=== PATIENT | female | born 1995 | race Caucasian/White ===

== ENCOUNTER 2018-08-16 00:16 | Emergency (ER) | payer OTHER, MEDICAID ==
[2018-08-16] MEDS: ACETAMINOPHEN 500 MG TAB PO (01:54)
== END 2018-08-16 02:04 | disposition home or self-care (01) ==
LOC: FTE 00:16
DX: O99.619 Diseases of the digestive system complicating pregnancy, unspecified trimester (principal); K08.89 Other specified disorders of teeth and supporting structures
CPT/HCPCS: 99283; Z7502

== ENCOUNTER 2018-11-07 11:34 | Emergency (ER) | payer OTHER ==
[2018-11-07] MEDS: METOCLOPRAMIDE 10 MG INJ IV (12:22)
[2018-11-07] MEDS: SOD CHLORIDE 0.9% 1,000 ML IV (12:22)
[2018-11-07 12:39] LABS: ADD MAN DIFF? NO
[2018-11-07 12:43] LABS: BASOPHIL # 0.1 10^3/ul (0.0-0.1); BASOPHILS % 0.5 % (0.0-2.0); EOSINOPHILS # 0.1 10^3/ul (0.0-0.5); HEMATOCRIT 38.3 % (37.0-47.0); HEMOGLOBIN 12.7 g/dl (12.0-16.0); LYMPHOCYTES # 1.6 10^3/ul (0.8-2.9); LYMPHOCYTES % 17.5 % (15.0-51.0); MEAN CORPUSCULAR HEMOGLOBIN 29.2 pg (29.0-33.0); MEAN CORPUSCULAR HGB CONC 33.2 g/dl (32.0-37.0); MEAN PLATELET VOLUME 10.8 fl (7.4-10.4); MONOCYTE # 0.4 10^3/ul (0.3-0.9); MONOCYTES % 4.1 % (0.0-11.0); NEUTROPHIL # 7.2 10^3/ul (1.6-7.5); NEUTROPHILS % 76.6 % (39.0-77.0); PLATELET COUNT 385 10^3/UL (140-415); RED BLOOD COUNT 4.35 10^6/ul (4.20-5.40); RED CELL DISTRIBUTION WIDTH 14.1 % (11.5-14.5)
[2018-11-07 12:43] LABS: WHITE BLOOD COUNT 9.4 10^3/ul (4.8-10.8)
[2018-11-07 12:58] LABS: ADD UMIC YES; UR ASCORBIC ACID NEGATIVE (NEGATIVE); UR BACTERIA FEW /HPF (NONE SEEN); UR BILIRUBIN (Dip) NEGATIVE (NEGATIVE); UR BLOOD (Dip) NEGATIVE (NEGATIVE); UR CLARITY CLOUDY (CLEAR); UR COLOR AMBER (YELLOW); UR GLUCOSE (Dip) NEGATIVE (NEGATIVE); UR KETONES (Dip) 1+ mg/dL (NEGATIVE); UR LEUKOCYTE ESTERASE (Dip) 3+ Leu/ul (NEGATIVE); UR MUCUS MANY /HPF (NONE SEEN); UR NITRITE (Dip) NEGATIVE (NEGATIVE); UR RBC 23 /HPF (0-5); UR SPECIFIC GRAVITY (Dip) 1.026 (1.003-1.030); UR SQUAMOUS EPITHELIAL CELL MANY /HPF (FEW); UR TOTAL PROTEIN (Dip) 1+ mg/dl (NEGATIVE); UR UROBILINOGEN (Dip) 1+ mg/dL (NEGATIVE); UR WBC 17 /HPF (0-5)
[2018-11-07 13:00] LABS: ANION GAP 11 (5-13); BLOOD UREA NITROGEN 2 mg/dl (7-20); CALCIUM 9.6 mg/dl (8.4-10.2); CARBON DIOXIDE 24 mmol/L (21-31); CHLORIDE 105 mmol/L (97-110); Estimated GFR > 60 mL/min (>60); GLUCOSE 80 mg/dl (70-220); POTASSIUM 3.7 mmol/L (3.5-5.1); SODIUM 140 mmol/L (135-144)
== END 2018-11-07 14:27 | disposition home or self-care (01) ==
LOC: FTE 11:34
DX: O23.41 Unspecified infection of urinary tract in pregnancy, first trimester (principal); Z3A.01 Less than 8 weeks gestation of pregnancy
CPT/HCPCS: 36415; 80048; 81001; 84702; 85025; 86900; 86901; 87086; 96374; 99284-25

== ENCOUNTER 2019-01-30 14:23 | Inpatient (IN) | payer OTHER ==
[2019-01-30 15:50] LABS: ADD UMIC YES; UR ASCORBIC ACID 40 mg/dL (NEGATIVE); UR BILIRUBIN (Dip) NEGATIVE (NEGATIVE); UR BLOOD (Dip) NEGATIVE (NEGATIVE); UR CLARITY CLEAR (CLEAR); UR COLOR AMBER (YELLOW); UR GLUCOSE (Dip) NEGATIVE (NEGATIVE); UR KETONES (Dip) 2+ mg/dL (NEGATIVE); UR LEUKOCYTE ESTERASE (Dip) 1+ Leu/ul (NEGATIVE); UR MUCUS FEW /HPF (NONE SEEN); UR NITRITE (Dip) NEGATIVE (NEGATIVE); UR RBC 1 /HPF (0-5); UR SPECIFIC GRAVITY (Dip) 1.021 (1.003-1.030); UR SQUAMOUS EPITHELIAL CELL FEW /HPF (FEW); UR TOTAL PROTEIN (Dip) NEGATIVE (NEGATIVE); UR UROBILINOGEN (Dip) 2+ mg/dL (NEGATIVE); UR WBC 2 /HPF (0-5)
[2019-01-30] MEDS ORDERED: ACETAMINOPHEN 325 MG TAB PO (20:30)
[2019-01-30] MEDS ORDERED: BETAMET NA PHOS/AC(6 MG/ML) 2 ML INJ SYG IM (20:30)
[2019-01-30] MEDS: LACTATED RINGER'S 1,000 ML IV (20:49)
[2019-01-30] MEDS: MAGNESIUM SULFATE 4 GM/100 ML 100 ML IV (20:52)
[2019-01-30] MEDS: MAGNESIUM SULFATE 20 GM/500 ML 500 ML IV (21:23)
[2019-01-30] MEDS: AMPICILLIN 2 GM/NS (PMX) 100 ML IV (21:24)
[2019-01-30] MEDS: BETAMET NA PHOS/AC(6 MG/ML) 2 ML INJ SYG IM (21:45)
[2019-01-30] MEDS ORDERED: DIPHENHYDRAMINE 50 MG INJ IV (23:00)
[2019-01-31 01:19] LABS: AMPHETAMINE/METHAMPHETAMINE Negative (NEGATIVE); BARBITURATES Negative (NEGATIVE); BENZODIAZEPINES Negative (NEGATIVE); CANNABINOIDS Negative (NEGATIVE); COCAINE Negative (NEGATIVE); OPIATES Negative (NEGATIVE)
[2019-01-31] MEDS: AMPICILLIN 1 GM/NS (PMX) 50 ML IV ×6 (01:25→21:43)
[2019-01-31] MEDS: MAGNESIUM SULFATE 20 GM/500 ML 500 ML IV ×2 (06:30→15:43)
[2019-01-31 07:58] LABS: MAGNESIUM 4.6 mg/dl (1.7-2.5)
[2019-01-31] MEDS: SALINE 0.65% 45 ML NAS SPRAY NASAL (08:21)
[2019-01-31] MEDS ORDERED: NON-FORMULARY/PATIENT OWN MED (Prenatal Vit No.124/Iron/FA (Prenatal Vitamin Tablet) 1 EAC PO (09:00)
[2019-01-31] MEDS: PRENATAL VITAMIN PO (09:15)
[2019-01-31] MEDS: LACTATED RINGER'S 1,000 ML IV (09:16)
[2019-01-31 13:52] LABS: MAGNESIUM 4.6 mg/dl (1.7-2.5)
[2019-01-31 19:34] LABS: MAGNESIUM 4.5 mg/dl (1.7-2.5)
[2019-01-31] MEDS: BETAMET NA PHOS/AC(6 MG/ML) 2 ML INJ SYG IM (22:41)
[2019-02-01] MEDS: MAGNESIUM SULFATE 20 GM/500 ML 500 ML IV ×2 (01:12→11:18)
[2019-02-01] MEDS: AMPICILLIN 1 GM/NS (PMX) 50 ML IV ×6 (01:13→21:32)
[2019-02-01 01:16] LABS: MAGNESIUM 4.5 mg/dl (1.7-2.5)
[2019-02-01] MEDS: DIPHENHYDRAMINE 2.5 MG/ML 5ML CUP PO ×2 (01:25→23:17)
[2019-02-01] MEDS: LACTATED RINGER'S 1,000 ML IV ×2 (02:35→16:57)
[2019-02-01 07:20] LABS: MAGNESIUM 4.7 mg/dl (1.7-2.5)
[2019-02-01] MEDS: PRENATAL VITAMIN PO (08:52)
[2019-02-01 12:15] LABS: MAGNESIUM 4.6 mg/dl (1.7-2.5)
[2019-02-01 18:35] LABS: MAGNESIUM 4.5 mg/dl (1.7-2.5)
[2019-02-02] MEDS: AMPICILLIN 1 GM/NS (PMX) 50 ML IV ×3 (01:27→09:23)
[2019-02-02] MEDS: LACTATED RINGER'S 1,000 ML IV (06:11)
[2019-02-02] MEDS: PRENATAL VITAMIN PO (09:23)
[2019-02-02] MEDS: metroNIDAZOLE 500 MG TAB PO (20:59)
[2019-02-02] MEDS: DIPHENHYDRAMINE 2.5 MG/ML 5ML CUP PO (23:24)
[2019-02-03] MEDS: PRENATAL VITAMIN PO (09:08)
[2019-02-03] MEDS: metroNIDAZOLE 500 MG TAB PO ×2 (09:08→21:03)
[2019-02-04] MEDS: MICONAZOLE 2% 45 GM VAG CR VAG (01:00)
[2019-02-04] MEDS: PRENATAL VITAMIN PO (08:38)
[2019-02-04] MEDS: metroNIDAZOLE 500 MG TAB PO (08:38)
== END 2019-02-04 15:48 | disposition home or self-care (01) | DRG 832 ==
LOC: OBT 14:23 → L-D 14:23 → OBT 18:00 → L-D 18:00 → PP1 22:29
DX: O60.03 Preterm labor without delivery, third trimester (principal); O26.873 Cervical shortening, third trimester; Z3A.28 28 weeks gestation of pregnancy
CPT/HCPCS: 76815; 76817; 80307; 81001; 83735; 87081

== ENCOUNTER 2019-02-15 18:55 | Inpatient (IN) | payer OTHER ==
[2019-02-15 20:45] LABS: ADD UMIC YES; UR BILIRUBIN (Dip) NEGATIVE (NEGATIVE); UR BLOOD (Dip) NEGATIVE (NEGATIVE); UR CLARITY SLIGHTLY CLOUDY (CLEAR); UR COLOR YELLOW (YELLOW); UR GLUCOSE (Dip) NEGATIVE (NEGATIVE); UR KETONES (Dip) TRACE mg/dL (NEGATIVE); UR LEUKOCYTE ESTERASE (Dip) 3+ Leu/ul (NEGATIVE); UR NITRITE (Dip) NEGATIVE (NEGATIVE); UR TOTAL PROTEIN (Dip) NEGATIVE (NEGATIVE); UR UROBILINOGEN (Dip) NEGATIVE (NEGATIVE); URINE SPECIFIC GRAVITY (Dip) 1.018 (1.003-1.030)
[2019-02-15 20:46] LABS: UR ASCORBIC ACID 20 mg/dL (NEGATIVE); UR BACTERIA FEW /HPF (NONE SEEN); UR MUCUS FEW /HPF (NONE SEEN); UR RBC 1 /HPF (0-5); UR SQUAMOUS EPITHELIAL CELL FEW /HPF (FEW); UR WBC 3 /HPF (0-5)
[2019-02-16] MEDS: BETAMET NA PHOS/AC(6 MG/ML) 2 ML INJ SYG IM (02:52)
[2019-02-16] MEDS: NIFEdipine 10 MG CAP PO ×4 (02:52→21:10)
[2019-02-16] MEDS: LACTATED RINGER'S 1,000 ML IV ×3 (03:07→18:14)
[2019-02-16 05:14] LABS: ADD MAN DIFF? NO
[2019-02-16 05:24] LABS: BASOPHIL # 0.1 10^3/ul (0.0-0.1); BASOPHILS % 0.6 % (0.0-2.0); EOSINOPHILS # 0.1 10^3/ul (0.0-0.5); EOSINOPHILS % 1.3 % (0.0-7.0); HEMATOCRIT 31.9 % (37.0-47.0); HEMOGLOBIN 10.3 g/dl (12.0-16.0); LYMPHOCYTES # 2.6 10^3/ul (0.8-2.9); LYMPHOCYTES % 29.2 % (15.0-51.0); MEAN CORPUSCULAR HEMOGLOBIN 29.5 pg (29.0-33.0); MEAN CORPUSCULAR HGB CONC 32.3 g/dl (32.0-37.0); MEAN CORPUSCULAR VOLUME 91.4 fl (82.0-101.0); MEAN PLATELET VOLUME 10.7 fl (7.4-10.4); MONOCYTE # 0.5 10^3/ul (0.3-0.9); MONOCYTES % 5.6 % (0.0-11.0); NEUTROPHIL # 5.5 10^3/ul (1.6-7.5); NEUTROPHILS % 62.7 % (39.0-77.0); PLATELET COUNT 417 10^3/UL (140-415); RED BLOOD COUNT 3.49 10^6/ul (4.20-5.40); RED CELL DISTRIBUTION WIDTH 13.6 % (11.5-14.5)
[2019-02-16 05:24] LABS: WHITE BLOOD COUNT 8.7 10^3/ul (4.8-10.8)
[2019-02-16] MEDS: FERROUS SULFATE (EC) 325 MG TAB PO (09:04)
[2019-02-16] MEDS: PRENATAL VITAMIN PO (09:04)
[2019-02-16] MEDS: PROGESTERONE 100 MG PO ×2 (14:40→21:11)
[2019-02-16] MEDS ORDERED: PROGESTERONE 100 MG CAP PO ×2 (21:00)
[2019-02-17] MEDS: LACTATED RINGER'S 1,000 ML IV ×3 (01:54→17:33)
[2019-02-17] MEDS: BETAMET NA PHOS/AC(6 MG/ML) 2 ML INJ SYG IM (03:06)
[2019-02-17] MEDS: NIFEdipine 10 MG CAP PO ×3 (03:06→15:24)
[2019-02-17] MEDS: FERROUS SULFATE (EC) 325 MG TAB PO (09:06)
[2019-02-17] MEDS: PROGESTERONE 100 MG PO ×2 (09:06→21:29)
[2019-02-17] MEDS: PRENATAL VITAMIN PO (09:07)
[2019-02-18] MEDS: NIFEdipine 10 MG CAP PO ×4 (00:23→18:19)
[2019-02-18] MEDS: LACTATED RINGER'S 1,000 ML IV ×3 (00:57→18:19)
[2019-02-18] MEDS: PRENATAL VITAMIN PO (08:52)
[2019-02-18] MEDS: FERROUS SULFATE (EC) 325 MG TAB PO (08:53)
[2019-02-18] MEDS: PROGESTERONE 100 MG PO (08:53)
[2019-02-18] MEDS ORDERED: PROGESTERONE 100 MG CAP VAG (21:00)
[2019-02-18] MEDS: PROGESTERONE 100 MG CAP VAG (22:17)
[2019-02-19] MEDS: LACTATED RINGER'S 1,000 ML IV ×3 (03:04→19:00)
[2019-02-19] MEDS: NIFEdipine 10 MG CAP PO ×4 (06:16→18:04)
[2019-02-19] MEDS: FERROUS SULFATE (EC) 325 MG TAB PO (09:28)
[2019-02-19] MEDS: PROGESTERONE 100 MG CAP VAG ×2 (09:28→22:51)
[2019-02-19] MEDS: PRENATAL VITAMIN PO (09:28)
[2019-02-20] MEDS: NIFEdipine 10 MG CAP PO ×4 (00:20→17:54)
[2019-02-20] MEDS: LACTATED RINGER'S 1,000 ML IV ×2 (01:11→19:00)
[2019-02-20] MEDS: PROGESTERONE 100 MG CAP VAG ×2 (09:48→22:26)
[2019-02-20] MEDS: FERROUS SULFATE (EC) 325 MG TAB PO (09:48)
[2019-02-20] MEDS: PRENATAL VITAMIN PO (09:48)
[2019-02-21] MEDS: NIFEdipine 10 MG CAP PO ×4 (00:14→18:05)
[2019-02-21] MEDS: PRENATAL VITAMIN PO (12:08)
[2019-02-21] MEDS: PROGESTERONE 100 MG CAP VAG ×2 (12:08→21:01)
[2019-02-21] MEDS: FERROUS SULFATE (EC) 325 MG TAB PO (12:08)
[2019-02-22] MEDS: NIFEdipine 10 MG CAP PO ×4 (00:15→17:50)
[2019-02-22] MEDS: CALCIUM CARBONATE 750 MG CHEW TAB PO ×2 (00:53→18:01)
[2019-02-22] MEDS: LORAZEPAM 1 MG TAB SL (01:52)
[2019-02-22] MEDS: PROGESTERONE 100 MG CAP VAG ×2 (09:09→21:13)
[2019-02-22] MEDS: FERROUS SULFATE (EC) 325 MG TAB PO (09:09)
[2019-02-22] MEDS: PRENATAL VITAMIN PO (09:09)
[2019-02-23] MEDS: NIFEdipine 10 MG CAP PO ×2 (00:10→05:57)
[2019-02-23] MEDS: PROGESTERONE 100 MG CAP VAG ×2 (09:10→21:12)
[2019-02-23] MEDS: PRENATAL VITAMIN PO (09:10)
[2019-02-23] MEDS: FERROUS SULFATE (EC) 325 MG TAB PO (09:10)
[2019-02-23] MEDS: CALCIUM CARBONATE 750 MG CHEW TAB PO (22:14)
[2019-02-24] MEDS: FERROUS SULFATE (EC) 325 MG TAB PO (09:06)
[2019-02-24] MEDS: PROGESTERONE 100 MG CAP VAG ×2 (09:06→21:43)
[2019-02-24] MEDS: PRENATAL VITAMIN PO (09:06)
[2019-02-25] MEDS: FERROUS SULFATE (EC) 325 MG TAB PO (09:52)
[2019-02-25] MEDS: PRENATAL VITAMIN PO (09:52)
[2019-02-25] MEDS: PROGESTERONE 100 MG CAP VAG ×2 (09:52→21:59)
[2019-02-26] MEDS: FERROUS SULFATE (EC) 325 MG TAB PO (09:05)
[2019-02-26] MEDS: PRENATAL VITAMIN PO (09:05)
[2019-02-26] MEDS: PROGESTERONE 100 MG CAP VAG (09:05)
== END 2019-02-26 21:00 | disposition home or self-care (01) | DRG 832 ==
LOC: OBT 18:55 → L-D 02-16 00:03 → PP1 02-18 20:38 → L-D 20:23
DX: O36.8130 Decreased fetal movements, third trimester, not applicable or unspecified (principal); O26.873 Cervical shortening, third trimester; Z3A.30 30 weeks gestation of pregnancy
CPT/HCPCS: 76815; 76817; 76818; 81001; 85025; 86850; 86900; 86901; 87086; 93005

== ENCOUNTER 2019-03-06 18:53 | Inpatient (IN) | payer OTHER ==
[2019-03-06 21:16] LABS: ADD UMIC YES; UR ASCORBIC ACID NEGATIVE (NEGATIVE); UR BILIRUBIN (Dip) 1+ mg/dL (NEGATIVE); UR BLOOD (Dip) NEGATIVE (NEGATIVE); UR CALCIUM OXALATE CRYSTAL MANY /HPF (NONE SEEN); UR CLARITY SLIGHTLY CLOUDY (CLEAR); UR COLOR AMBER (YELLOW); UR GLUCOSE (Dip) NEGATIVE (NEGATIVE); UR KETONES (Dip) TRACE mg/dL (NEGATIVE); UR LEUKOCYTE ESTERASE (Dip) 2+ Leu/ul (NEGATIVE); UR MUCUS MANY /HPF (NONE SEEN); UR NITRITE (Dip) NEGATIVE (NEGATIVE); UR RBC 3 /HPF (0-5); UR SPECIFIC GRAVITY (Dip) 1.025 (1.003-1.030); UR SQUAMOUS EPITHELIAL CELL FEW /HPF (FEW); UR TOTAL PROTEIN (Dip) 1+ mg/dl (NEGATIVE); UR UROBILINOGEN (Dip) NEGATIVE (NEGATIVE); UR WBC 2 /HPF (0-5)
[2019-03-06] MEDS: ACETAMINOPHEN 500 MG TAB PO (22:58)
[2019-03-06] MEDS: LACTATED RINGER'S 1,000 ML IV (23:11)
[2019-03-07] MEDS ORDERED: ACETAMINOPHEN 325 MG TAB PO (03:30)
[2019-03-07] MEDS: LACTATED RINGER'S 1,000 ML IV ×2 (03:38→11:27)
[2019-03-07 05:57] LABS: ADD MAN DIFF? NO
[2019-03-07 05:59] LABS: BASOPHILS % 0.5 % (0.0-2.0); EOSINOPHILS # 0.1 10^3/ul (0.0-0.5); EOSINOPHILS % 1.2 % (0.0-7.0); HEMATOCRIT 28.1 % (37.0-47.0); HEMOGLOBIN 9.4 g/dl (12.0-16.0); LYMPHOCYTES # 2.4 10^3/ul (0.8-2.9); LYMPHOCYTES % 32.4 % (15.0-51.0); MEAN CORPUSCULAR HEMOGLOBIN 30.7 pg (29.0-33.0); MEAN CORPUSCULAR HGB CONC 33.5 g/dl (32.0-37.0); MEAN CORPUSCULAR VOLUME 91.8 fl (82.0-101.0); MEAN PLATELET VOLUME 9.9 fl (7.4-10.4); MONOCYTE # 0.4 10^3/ul (0.3-0.9); MONOCYTES % 5.9 % (0.0-11.0); NEUTROPHIL # 4.5 10^3/ul (1.6-7.5); NEUTROPHILS % 59.3 % (39.0-77.0); PLATELET COUNT 331 10^3/UL (140-415); RED BLOOD COUNT 3.06 10^6/ul (4.20-5.40); RED CELL DISTRIBUTION WIDTH 13.7 % (11.5-14.5)
[2019-03-07 05:59] LABS: WHITE BLOOD COUNT 7.5 10^3/ul (4.8-10.8)
[2019-03-07] MEDS: PRENATAL VITAMIN PO (09:59)
[2019-03-07] MEDS: DOCUSATE SODIUM 100 MG CAP PO (09:59)
[2019-03-07] MEDS ORDERED: PROGESTERONE 100 MG CAP VAG (21:00)
== END 2019-03-07 21:00 | disposition home or self-care (01) | DRG 833 ==
LOC: OBT 18:53 → L-D 18:53
DX: O34.33 Maternal care for cervical incompetence, third trimester (principal); Z3A.33 33 weeks gestation of pregnancy
CPT/HCPCS: 76817; 81001; 85025; 86850; 86900; 86901; 96360

== ENCOUNTER 2019-03-17 09:25 | Inpatient (IN) | payer OTHER ==
[2019-03-17] MEDS: DEXTROSE 5%-LR 1,000 ML IV (10:23)
[2019-03-17] MEDS: FAMOTIDINE 20 MG INJ IV ×2 (10:42→21:09)
[2019-03-17] MEDS: ONDANSETRON 4 MG INJ IV ×3 (10:42→23:47)
[2019-03-17 10:58] LABS: ADD MAN DIFF? NO
[2019-03-17 11:03] LABS: WHITE BLOOD COUNT 12.2 10^3/ul (4.8-10.8)
[2019-03-17 11:03] LABS: BASOPHILS % 0.2 % (0.0-2.0); HEMATOCRIT 33.6 % (37.0-47.0); LYMPHOCYTES # 1.4 10^3/ul (0.8-2.9); LYMPHOCYTES % 11.1 % (15.0-51.0); MEAN CORPUSCULAR HEMOGLOBIN 29.8 pg (29.0-33.0); MEAN CORPUSCULAR HGB CONC 32.7 g/dl (32.0-37.0); MEAN CORPUSCULAR VOLUME 91.1 fl (82.0-101.0); MEAN PLATELET VOLUME 10.3 fl (7.4-10.4); MONOCYTE # 0.5 10^3/ul (0.3-0.9); MONOCYTES % 4.3 % (0.0-11.0); NEUTROPHIL # 10.2 10^3/ul (1.6-7.5); PLATELET COUNT 434 10^3/UL (140-415); RED BLOOD COUNT 3.69 10^6/ul (4.20-5.40); RED CELL DISTRIBUTION WIDTH 13.5 % (11.5-14.5)
[2019-03-17 11:20] LABS: ALANINE AMINOTRANSFERASE 17 IU/L (13-69); ALBUMIN 3.6 g/dl (3.3-4.9); ALBUMIN/GLOBULIN RATIO 1.12; ALKALINE PHOSPHATASE 139 IU/L (42-121); ANION GAP 9 (5-13); ASPARTATE AMINO TRANSFERASE 24 IU/L (15-46); BILIRUBIN,INDIRECT 0.4 mg/dl (0-1.1); BILIRUBIN,TOTAL 0.4 mg/dl (0.2-1.3); CALCIUM 9.4 mg/dl (8.4-10.2); CARBON DIOXIDE 23 mmol/L (21-31); CHLORIDE 109 mmol/L (97-110); CREATININE 0.45 mg/dl (0.44-1.00); Estimated GFR > 60 mL/min (>60); GLUCOSE 109 mg/dl (70-220); SODIUM 141 mmol/L (135-144); TOTAL PROTEIN 6.8 g/dl (6.1-8.1)
[2019-03-17 11:24] LABS: BLOOD UREA NITROGEN < 2 mg/dl (7-20); POTASSIUM 2.8 mmol/L (3.5-5.1)
[2019-03-17 11:43] LABS: ADD UMIC YES; UR ASCORBIC ACID NEGATIVE (NEGATIVE); UR BACTERIA FEW /HPF (NONE SEEN); UR BILIRUBIN (Dip) NEGATIVE (NEGATIVE); UR BLOOD (Dip) 1+ mg/dL (NEGATIVE); UR CLARITY SLIGHTLY CLOUDY (CLEAR); UR COLOR AMBER (YELLOW); UR GLUCOSE (Dip) NEGATIVE (NEGATIVE); UR KETONES (Dip) 2+ mg/dL (NEGATIVE); UR LEUKOCYTE ESTERASE (Dip) TRACE Leu/ul (NEGATIVE); UR MUCUS MANY /HPF (NONE SEEN); UR NITRITE (Dip) NEGATIVE (NEGATIVE); UR RBC 2 /HPF (0-5); UR SPECIFIC GRAVITY (Dip) 1.028 (1.003-1.030); UR SQUAMOUS EPITHELIAL CELL FEW /HPF (FEW); UR TOTAL PROTEIN (Dip) 2+ mg/dl (NEGATIVE); UR UROBILINOGEN (Dip) NEGATIVE (NEGATIVE); UR WBC 3 /HPF (0-5)
[2019-03-17] MEDS: D5-LR + KCL 20 MEQ 1,000 ML IV (11:49)
[2019-03-17] MEDS ORDERED: D5-NS + KCL 40 MEQ 1,000 ML IV (14:00)
[2019-03-17] MEDS: D5-NS + KCL 40 MEQ 1,000 ML IV ×2 (15:13→22:30)
[2019-03-17] MEDS: POTASSIUM CHLORIDE 100 ML IVPB ×2 (15:14→22:06)
[2019-03-18] MEDS: CEPASTAT LOZENGE MT ×5 (01:37→21:43)
[2019-03-18] MEDS: POTASSIUM CHLORIDE (SR) 20 MEQ TAB PO ×2 (01:37→06:52)
[2019-03-18] MEDS: D5-NS + KCL 40 MEQ 1,000 ML IV (05:19)
[2019-03-18] MEDS: ONDANSETRON 4 MG INJ IV ×3 (05:42→20:26)
[2019-03-18 07:47] LABS: ALANINE AMINOTRANSFERASE 22 IU/L (13-69); ALBUMIN/GLOBULIN RATIO 1.03; ALKALINE PHOSPHATASE 117 IU/L (42-121); ANION GAP 2 (5-13); ASPARTATE AMINO TRANSFERASE 20 IU/L (15-46); BILIRUBIN,INDIRECT 0.4 mg/dl (0-1.1); BILIRUBIN,TOTAL 0.4 mg/dl (0.2-1.3); CALCIUM 8.7 mg/dl (8.4-10.2); CARBON DIOXIDE 23 mmol/L (21-31); CHLORIDE 115 mmol/L (97-110); Estimated GFR > 60 mL/min (>60); GLUCOSE 110 mg/dl (70-220); POTASSIUM 3.9 mmol/L (3.5-5.1); SODIUM 140 mmol/L (135-144); TOTAL PROTEIN 5.9 g/dl (6.1-8.1)
[2019-03-18 07:48] LABS: BLOOD UREA NITROGEN < 2 mg/dl (7-20)
[2019-03-18] MEDS: FAMOTIDINE 20 MG INJ IV ×2 (09:06→21:29)
[2019-03-18] MEDS: LACTATED RINGER'S 1,000 ML IV ×2 (09:09→17:26)
[2019-03-18 13:33] LABS: FREE T4 (FREE THYROXINE) 1.05 ng/dl (0.79-2.35)
[2019-03-18 13:47] LABS: THYROID STIMULATING HORMONE 0.644 MIU/L (0.465-4.680)
[2019-03-18] MEDS ORDERED: DIPHENHYDRAMINE 50 MG INJ IM (23:30)
[2019-03-19] MEDS: LACTATED RINGER'S 1,000 ML IV ×3 (02:19→20:22)
[2019-03-19] MEDS: DIPHENHYDRAMINE 50 MG INJ IV (02:23)
[2019-03-19 06:14] LABS: ANION GAP 5 (5-13); CALCIUM 8.8 mg/dl (8.4-10.2); CARBON DIOXIDE 21 mmol/L (21-31); CHLORIDE 112 mmol/L (97-110); CREATININE 0.42 mg/dl (0.44-1.00); Estimated GFR > 60 mL/min (>60); GLUCOSE 71 mg/dl (70-220); POTASSIUM 3.3 mmol/L (3.5-5.1); SODIUM 138 mmol/L (135-144)
[2019-03-19 06:16] LABS: BLOOD UREA NITROGEN < 2 mg/dl (7-20)
[2019-03-19] MEDS: ONDANSETRON INJ 8 MG in SOD CHLORIDE 0.9% 50 ML IV (08:52)
[2019-03-19] MEDS ORDERED: POTASSIUM CHLORIDE (SR) 20 MEQ TAB PO (09:00)
[2019-03-19] MEDS: PANTOPRAZOLE 40 MG INJ IV (10:33)
[2019-03-19] MEDS: POTASSIUM CHLORIDE (SR) 20 MEQ TAB PO ×3 (13:46→15:39)
[2019-03-19] MEDS: CARBAMIDE PEROXIDE 6.5% 15ML OTIC RIGHT EAR (15:46)
[2019-03-19] MEDS: CEPASTAT LOZENGE MT (17:53)
[2019-03-20] MEDS: ONDANSETRON INJ 8 MG in SOD CHLORIDE 0.9% 50 ML IV ×3 (02:10→20:17)
[2019-03-20] MEDS: CEPASTAT LOZENGE MT ×2 (02:31→11:51)
[2019-03-20] MEDS: PANTOPRAZOLE 40 MG INJ IV ×2 (06:00→17:02)
[2019-03-20 08:57] LABS: ALANINE AMINOTRANSFERASE 37 IU/L (13-69); ALBUMIN 2.7 g/dl (3.3-4.9); ALKALINE PHOSPHATASE 116 IU/L (42-121); ANION GAP 6 (5-13); ASPARTATE AMINO TRANSFERASE 44 IU/L (15-46); BILIRUBIN,INDIRECT 0.3 mg/dl (0-1.1); BILIRUBIN,TOTAL 0.3 mg/dl (0.2-1.3); BLOOD UREA NITROGEN 2 mg/dl (7-20); CALCIUM 8.8 mg/dl (8.4-10.2); CARBON DIOXIDE 23 mmol/L (21-31); CHLORIDE 109 mmol/L (97-110); CREATININE 0.42 mg/dl (0.44-1.00); Estimated GFR > 60 mL/min (>60); GLUCOSE 72 mg/dl (70-220); POTASSIUM 3.2 mmol/L (3.5-5.1); SODIUM 138 mmol/L (135-144); TOTAL PROTEIN 5.4 g/dl (6.1-8.1)
[2019-03-20] MEDS: LACTATED RINGER'S 1,000 ML IV ×3 (09:30→19:53)
[2019-03-20] MEDS: POTASSIUM CHLORIDE (SR) 20 MEQ TAB PO (20:15)
[2019-03-21] MEDS: POTASSIUM CHLORIDE (SR) 20 MEQ TAB PO (00:06)
[2019-03-21] MEDS: LACTATED RINGER'S 1,000 ML IV (02:55)
[2019-03-21] MEDS: CEPASTAT LOZENGE MT ×5 (03:05→20:27)
[2019-03-21] MEDS: ONDANSETRON INJ 8 MG in SOD CHLORIDE 0.9% 50 ML IV (09:04)
[2019-03-21] MEDS: PANTOPRAZOLE 40 MG INJ IV (10:33)
== END 2019-03-21 21:42 | disposition home or self-care (01) | DRG 833 ==
LOC: OBT 09:25 → L-D 09:25 → OBT 09:50 → L-D 10:05
DX: O21.0 Mild hyperemesis gravidarum (principal); Z3A.35 35 weeks gestation of pregnancy; E86.0 Dehydration; E87.6 Hypokalemia
CPT/HCPCS: 76815; 76818; 80048; 80053; 81001; 84439; 84443; 85025; 93005

== ENCOUNTER 2019-03-22 22:02 | Outpatient (CLI) | payer OTHER ==
[2019-03-22 23:36] LABS: AMPHETAMINE/METHAMPHETAMINE Negative (NEGATIVE); BARBITURATES Negative (NEGATIVE); BENZODIAZEPINES Negative (NEGATIVE); CANNABINOIDS Negative (NEGATIVE); COCAINE Negative (NEGATIVE); OPIATES Negative (NEGATIVE)
[2019-03-22 23:38] LABS: ADD UMIC YES; UR ASCORBIC ACID NEGATIVE (NEGATIVE); UR BACTERIA FEW /HPF (NONE SEEN); UR BILIRUBIN (Dip) NEGATIVE (NEGATIVE); UR BLOOD (Dip) NEGATIVE (NEGATIVE); UR CALCIUM OXALATE CRYSTAL FEW /HPF (NONE SEEN); UR CLARITY CLOUDY (CLEAR); UR COLOR AMBER (YELLOW); UR GLUCOSE (Dip) NEGATIVE (NEGATIVE); UR KETONES (Dip) NEGATIVE (NEGATIVE); UR LEUKOCYTE ESTERASE (Dip) 3+ Leu/ul (NEGATIVE); UR MUCUS FEW /HPF (NONE SEEN); UR NITRITE (Dip) NEGATIVE (NEGATIVE); UR RBC 6 /HPF (0-5); UR SPECIFIC GRAVITY (Dip) 1.024 (1.003-1.030); UR SQUAMOUS EPITHELIAL CELL MODERATE /HPF (FEW); UR TOTAL PROTEIN (Dip) 1+ mg/dl (NEGATIVE); UR UROBILINOGEN (Dip) NEGATIVE (NEGATIVE); UR WBC 5 /HPF (0-5)
[2019-03-22] MEDS: HYDROCODONE/APAP (5/325) TAB PO (23:48)
== END 2019-03-22 23:52 | disposition home or self-care (01) ==
LOC: OBT 22:02 → L-D 22:03 → OBT 23:52
DX: O62.9 Abnormality of forces of labor, unspecified (principal); Z3A.35 35 weeks gestation of pregnancy
CPT/HCPCS: 80307; 81001

== ENCOUNTER 2019-03-31 19:17 | Outpatient (CLI) | payer OTHER ==
[2019-03-31] MEDS: FAMOTIDINE 20 MG TAB PO (21:18)
[2019-03-31] MEDS: LACTATED RINGER'S 1,000 ML IV (21:33)
== END 2019-04-01 00:10 | disposition home or self-care (01) ==
LOC: OBT 19:17 → L-D 19:18
DX: O36.8130 Decreased fetal movements, third trimester, not applicable or unspecified (principal); Z3A.37 37 weeks gestation of pregnancy
CPT/HCPCS: 36415; 76818; 96360

== ENCOUNTER 2019-04-02 16:46 | Outpatient (CLI) | payer OTHER ==
[2019-04-02 20:00] LABS: ADD UMIC YES; UR ASCORBIC ACID NEGATIVE (NEGATIVE); UR BACTERIA FEW /HPF (NONE SEEN); UR BILIRUBIN (Dip) NEGATIVE (NEGATIVE); UR BLOOD (Dip) NEGATIVE (NEGATIVE); UR CALCIUM OXALATE CRYSTAL MANY /HPF (NONE SEEN); UR CLARITY SLIGHTLY CLOUDY (CLEAR); UR COLOR AMBER (YELLOW); UR GLUCOSE (Dip) NEGATIVE (NEGATIVE); UR KETONES (Dip) 1+ mg/dL (NEGATIVE); UR LEUKOCYTE ESTERASE (Dip) 1+ Leu/ul (NEGATIVE); UR MUCUS MANY /HPF (NONE SEEN); UR NITRITE (Dip) NEGATIVE (NEGATIVE); UR RBC 6 /HPF (0-5); UR SPECIFIC GRAVITY (Dip) 1.027 (1.003-1.030); UR SQUAMOUS EPITHELIAL CELL FEW /HPF (FEW); UR TOTAL PROTEIN (Dip) 1+ mg/dl (NEGATIVE); UR UROBILINOGEN (Dip) 1+ mg/dL (NEGATIVE); UR WBC 5 /HPF (0-5)
== END 2019-04-02 21:33 | disposition home or self-care (01) ==
LOC: OBT 16:46 → L-D 16:47
DX: O26.893 Other specified pregnancy related conditions, third trimester (principal); R10.2 Pelvic and perineal pain; Z3A.37 37 weeks gestation of pregnancy
CPT/HCPCS: 76815; 76818; 81001

== ENCOUNTER 2019-04-22 23:16 | Inpatient (IN) | payer OTHER ==
[2019-04-23] MEDS ORDERED: LACTATED RINGER'S 1,000 ML IV (02:42)
[2019-04-23] MEDS ORDERED: LIDOCAINE 1% (MPF) 30 ML INJ INJ (03:00)
[2019-04-23] MEDS ORDERED: BUTORPHANOL 2 MG INJ IV ×2 (03:00)
[2019-04-23] MEDS ORDERED: OXYTOCIN 30 UNITS/LR 500 ML IV ×2 (03:00)
[2019-04-23] MEDS ORDERED: CARBOPROST 250 MCG INJ IM (03:00)
[2019-04-23] MEDS ORDERED: MINERAL OIL LIGHT 10 ML VIAL TOP (03:00)
[2019-04-23] MEDS ORDERED: METHYLERGONOVINE 0.2 MG INJ IM (03:00)
[2019-04-23 04:14] LABS: ADD MAN DIFF? NO
[2019-04-23 04:19] LABS: BASOPHILS % 0.4 % (0.0-2.0); EOSINOPHILS # 0.1 10^3/ul (0.0-0.5); HEMATOCRIT 32.1 % (37.0-47.0); HEMOGLOBIN 10.2 g/dl (12.0-16.0); LYMPHOCYTES # 2.4 10^3/ul (0.8-2.9); LYMPHOCYTES % 25.9 % (15.0-51.0); MEAN CORPUSCULAR HEMOGLOBIN 28.7 pg (29.0-33.0); MEAN CORPUSCULAR HGB CONC 31.8 g/dl (32.0-37.0); MEAN CORPUSCULAR VOLUME 90.4 fl (82.0-101.0); MEAN PLATELET VOLUME 11.3 fl (7.4-10.4); MONOCYTE # 0.6 10^3/ul (0.3-0.9); NEUTROPHIL # 5.9 10^3/ul (1.6-7.5); NEUTROPHILS % 65.4 % (39.0-77.0); PLATELET COUNT 363 10^3/UL (140-415); RED BLOOD COUNT 3.55 10^6/ul (4.20-5.40); RED CELL DISTRIBUTION WIDTH 13.5 % (11.5-14.5)
[2019-04-23 04:19] LABS: WHITE BLOOD COUNT 9.1 10^3/ul (4.8-10.8)
[2019-04-23] MEDS: MISOPROSTOL 50 MCG CAPSULE PO ×6 (04:22→23:00)
[2019-04-23] MEDS: LACTATED RINGER'S 1,000 ML IV ×2 (04:25→14:47)
[2019-04-23 04:45] LABS: INR 0.92; PARTIAL THROMBOPLASTIN TIME 27.2 Sec (23.0-35.0); PROTIME 12.5 Sec (11.9-14.9)
[2019-04-23 05:17] LABS: HEPATITIS B SURFACE ANTIGEN NEGATIVE (NEGATIVE)
[2019-04-23 15:23] LABS: RAPID PLASMA REAGIN NONREACTIVE (NR)
[2019-04-23] MEDS: ACETAMINOPHEN 325 MG TAB PO (19:10)
[2019-04-24] MEDS ORDERED: FENTAnyl 2MCG/ML-ROPIV 0.2% 100 ML ×2 (00:28)
[2019-04-24] MEDS ORDERED: FENTAnyl 2MCG/ML-ROPIV 0.2% 100 ML BAG EPI (01:30)
[2019-04-24] MEDS ORDERED: NALOXONE (0.4 MG/ML) INJ IV (01:30)
[2019-04-24] MEDS: LACTATED RINGER'S 1,000 ML IV ×4 (01:57→18:42)
[2019-04-24] MEDS ORDERED: MINERAL OIL LIGHT 10 ML VIAL TOP (04:00)
[2019-04-24] MEDS: OXYTOCIN 30 UNITS/LR 500 ML IV ×3 (04:34→05:07)
[2019-04-24] MEDS: MISOPROSTOL 200 MCG TAB PR (04:43)
[2019-04-24] MEDS ORDERED: METHYLERGONOVINE 0.2 MG INJ IM (05:30)
[2019-04-24] MEDS ORDERED: CARBOPROST 250 MCG INJ IM (05:30)
[2019-04-24] MEDS ORDERED: DIBUCAINE 1% 30 GM OINT TOP (05:30)
[2019-04-24] MEDS ORDERED: OXYTOCIN 30 UNITS/LR 500 ML IV (05:30)
[2019-04-24] MEDS ORDERED: ONDANSETRON 4 MG INJ IV (05:30)
[2019-04-24] MEDS ORDERED: ACETAMINOPHEN 325 MG TAB PO ×2 (05:30)
[2019-04-24] MEDS ORDERED: MISOPROSTOL 200 MCG TAB PR (05:30)
[2019-04-24] MEDS: WITCH HAZEL/GLYCERIN PAD PR (07:32)
[2019-04-24] MEDS: LANOLIN HPA 1 PKT TOP (07:32)
[2019-04-24] MEDS: IBUPROFEN 600 MG TAB PO ×4 (07:32→23:33)
[2019-04-24] MEDS: BENZOCAINE 20% 56 ML SPRAY TOP (07:33)
[2019-04-24] MEDS: LACTATED RINGER'S 1,000 ML IV* ×2 (09:01→13:07)
[2019-04-24] MEDS: SENNA/DOCUSATE NA (8.6MG/50MG) TAB PO ×2 (09:01→20:21)
[2019-04-24] MEDS: MAGNESIUM HYDROXIDE 30ML CUP PO (20:21)
[2019-04-25] MEDS: LANOLIN HPA 1 PKT TOP (02:29)
[2019-04-25] MEDS: IBUPROFEN 600 MG TAB PO ×4 (05:44→23:58)
[2019-04-25 09:49] LABS: WHITE BLOOD COUNT 9.4 10^3/ul (4.8-10.8)
[2019-04-25 09:49] LABS: ADD MAN DIFF? NO; BASOPHIL # 0.1 10^3/ul (0.0-0.1); BASOPHILS % 0.5 % (0.0-2.0); EOSINOPHILS # 0.1 10^3/ul (0.0-0.5); EOSINOPHILS % 1.2 % (0.0-7.0); HEMATOCRIT 30.5 % (37.0-47.0); HEMOGLOBIN 9.5 g/dl (12.0-16.0); LYMPHOCYTES # 2.3 10^3/ul (0.8-2.9); LYMPHOCYTES % 24.2 % (15.0-51.0); MEAN CORPUSCULAR HEMOGLOBIN 28.3 pg (29.0-33.0); MEAN CORPUSCULAR HGB CONC 31.1 g/dl (32.0-37.0); MEAN CORPUSCULAR VOLUME 90.8 fl (82.0-101.0); MEAN PLATELET VOLUME 11.1 fl (7.4-10.4); MONOCYTE # 0.7 10^3/ul (0.3-0.9); MONOCYTES % 7.2 % (0.0-11.0); NEUTROPHIL # 6.2 10^3/ul (1.6-7.5); NEUTROPHILS % 66.5 % (39.0-77.0); PLATELET COUNT 320 10^3/UL (140-415); RED BLOOD COUNT 3.36 10^6/ul (4.20-5.40)
[2019-04-25] MEDS: SENNA/DOCUSATE NA (8.6MG/50MG) TAB PO (21:33)
[2019-04-26] MEDS: IBUPROFEN 600 MG TAB PO ×2 (05:55→11:28)
[2019-04-26] MEDS: WITCH HAZEL/GLYCERIN PAD PR ×2 (10:03→12:55)
[2019-04-26] MEDS: BENZOCAINE 20% 56 ML SPRAY TOP ×2 (10:03→12:55)
[2019-04-26] MEDS: LANOLIN HPA 1 PKT TOP (14:12)
== END 2019-04-26 15:06 | disposition home or self-care (01) | DRG 807 ==
LOC: OBT 23:16 → L-D 04-24 00:37 → PP1 04-24 06:31 → L-D 23:26
PROVIDERS: Obstetrics & Gynecology
PROC: 10E0XZZ Delivery of Products of Conception, External Approach (ICD-10-PCS; principal; 2019-04-24)
PROC: 0W8NXZZ Division of Female Perineum, External Approach (ICD-10-PCS; 2019-04-24)
DX: O80 Encounter for full-term uncomplicated delivery (principal); Z37.0 Single live birth; Z3A.40 40 weeks gestation of pregnancy
CPT/HCPCS: 62322; 76815; 76818; 85025; 85610; 85730; 86592; 86850; 86900; 86901; 87340